=== PATIENT | male | born 1945 | race Caucasian/White ===

== ENCOUNTER → 2017-11-17 | Outpatient (CLI) | payer OTHER | PROVIDERS: ATTEND Otolaryngology | DX: R13.10 Dysphagia, unspecified (principal); S06.9X0A Unspecified intracranial injury without loss of consciousness, initial encounter | CPT/HCPCS: 74230; 92611; G8996; G8997; G8998 ==

== ENCOUNTER → 2018-08-11 | Outpatient (CLI) | payer OTHER | END | disposition home or self-care (01) | LOC: FIMAGING 09:34 | PROVIDERS: ATTEND Psychiatry & Neurology Neurology | DX: R25.1 Tremor, unspecified (principal); G93.89 Other specified disorders of brain; R90.89 Other abnormal findings on diagnostic imaging of central nervous system; Z87.820 Personal history of traumatic brain injury ==

== ENCOUNTER → 2018-09-13 | Outpatient (CLI) | payer OTHER ==
--- NOTE | 2018-09-13 12:49 | CPEEG ---
[f rep st] ELECTROENCEPHALOGRAM DATE OF STUDY: 09/13/2018 DATE OF INTERPRETATION: 09/13/2018 INTERPRETATION: This EEG is abnormal due to a moderate degree of focal slowing and asymmetry over the left frontotemporal head regions. These findings are consistent with the patient's known previous traumatic brain injury and neurosurgical procedure in these regions. There were no definite potentially epileptogenic abnormalities present in the awake or sleep recordings. REPORT: This EEG contains 10 Hz alpha activity of the posterior head regions, maximal right. The primary feature of this recording was the presence of persistent polymorphic theta and moderate amplitude delta slowing over the left hemisphere, maximal over the left frontotemporal head regions. There was also a moderate degree of asymmetry with increased amplitudes over the same regions ( breach rhythm). There was no definite abnormal activation at rest, during photic stimulation, or hyperventilation. There were occasionally sharply contoured waveforms over the left frontotemporal head region of uncertain clinical significance and which would be consistent with a breach rhythm. These continued during drowsiness, sleep, and during times of arousal. There were no definite epileptogenic abnormalities present during the awake or sleep recordings. /[id number]/MODL MTDD
== END ==
LOC: FCPNEURO 07:32
PROVIDERS: ATTEND Psychiatry & Neurology Neurology
DX: R25.1 Tremor, unspecified (principal)